=== PATIENT | male | born 1955 | race Caucasian/White ===

== ENCOUNTER 2020-07-16 12:13 | Emergency (ER) | payer MEDICARE ==
[~2020-07-16] VITALS: Ht 180.3 cm; Wt 128.3 kg
[2020-07-16] MEDS ORDERED: NEOSPORIN OINT. PKT 1 PACKET ONE (12:53)
[2020-07-16] MEDS ORDERED: DIPH,PERTUSS(ACELL),TET VAC/PF 0.5 ML IM-VACC ONE ×2 (13:00→13:50)
--- NOTE | 2020-07-16 13:20 | NUR ---
PT REQUESTING PAIN MED. PROVIDER NOTIFED. DTR AT BEDSIDE.
[2020-07-16] MEDS ORDERED: HYDROmorphone 1 MG/ML, 1ML INJ ONE (13:50)
[2020-07-16] MEDS ORDERED: SODIUM CHLORIDE FLUSH 10ML SYR IVF ONE (14:00)
[2020-07-16] MEDS ORDERED: LIDOCAINE-MPF 2% ,5ML SQ ONE (14:00)
[2020-07-16] MEDS ORDERED: BUPIVACAINE/PF-EPI 0.25% 1:200K SQ ONE (14:00)
[2020-07-16] MEDS ORDERED: HYDROmorphone 2 MG/ML, 1ML IVPush PRN (14:00)
--- NOTE | 2020-07-16 14:25 | NUR ---
PT TO CT
[2020-07-16] MEDS ORDERED: LIDOCAINE-MPF 2% ,5ML ONE (14:27)
[2020-07-16] MEDS ORDERED: BUPIVACAINE 0.25% ONE (14:27)
--- NOTE | 2020-07-16 14:34 | NUR ---
PT BACK FROM CT.
--- NOTE | 2020-07-16 15:15 | NUR ---
ERMD AND PA AT BEDSIDE TO REDUCTION, TOLERATED WELL. FUR CLIPPER TO PLACE SPLINT.
[2020-07-16 17:05] VITALS: BP 149/88
== END 2020-07-16 17:19 | disposition home or self-care (01) ==
LOC: ED 13:40
DX: S52.572A Other intraarticular fracture of lower end of left radius, initial encounter for closed fracture (principal); W01.0XXA Fall on same level from slipping, tripping and stumbling without subsequent striking against object, initial encounter; Y93.89 Activity, other specified; Y92.098 Other place in other non-institutional residence as the place of occurrence of the external cause; Y99.8 Other external cause status
CPT/HCPCS: 73080; 73110; 73200; 90471; 90715; 96374; 99284; J1170